=== PATIENT | male | born 1990 | race American Indian/Alaskan Native ===

== ENCOUNTER 2021-07-18 15:36 | Emergency (ER) | payer SELFPAY ==
[2021-07-18 15:42] VITALS: BP 138/84
== END 2021-07-18 20:45 | disposition left against medical advice (07) ==
LOC: ED 15:36
DX: R51.9 Headache, unspecified (principal); Z53.21 Procedure and treatment not carried out due to patient leaving prior to being seen by health care provider

== ENCOUNTER 2021-09-14 16:22 | Emergency (ER) | payer BC ==
[2021-09-14 17:02] VITALS: BP 146/105
--- NOTE | 2021-09-14 17:06 | Emergency Department Report ---
ED General Adult HPI - General Chief complaint: High BP Stated complaint: REACTION TO MEDICATION Time Seen by Provider: 09/14/21 16:38 Source: patient Mode of arrival: Ambulatory Limitations: No Limitations - History of Present Illness Initial comments: Patient is a 31-year-old male presents emergency room with complaints of elevated blood pressure. Patient states that the last 4 times he has been evaluated his blood pressure has been elevated. He states that he went to his primary care doctor yesterday and reports that his blood pressure was 140/114. Patient states he has been suffering from anxiety and panic attacks. He states that his doctor started him on hydroxyzine yesterday but he states it just makes him feel more hyped up. [place] to be on something for anxiety which she reports helped but he cannot member what he was taking. He denies any SI, HI, hallucina tions. He states he has been having headaches. He denies any vision changes, chest pain, nausea, vomiting, diarrhea, cough, shortness of breath, weakness, speech disturbance, gait disturbance. Allergy to Flexeril. He states that high blood pressure runs in his family. He states [place]. Severity scale (0 -10): 5 - Related Data Previous Rx's Medication Instructions Recorded Last Taken Type Ibuprofen [Motrin] 800 mg PO Q8H PRN #60 tablet 02/16/15 Unknown Rx traMADoL [Ultram] 50 mg PO Q6HR PRN #20 tablet 02/16/15 Unknown Rx amLODIPine 5 mg PO DAILY #30 tab 09/14/21 Unknown Rx Allergies Allergy/AdvReac Type Severity Reaction Status Date / Time cyclobenzaprine HCl AdvReac Unknown Verified 09/14/21 17:02 [From Flexeril] ED Review of Systems ROS: Stated complaint: REACTION TO MEDICATION Other details as noted in HPI Comment: All other systems reviewed and negative ED Past Medical Hx - Past Medical History Previous Medical History?: Yes Hx Hypertension: Yes (no meds) Additional medical history: cervical radiculopathy - Surgical History Past Surgical History?: Yes Additional Surgical History: Left thumb - Social History Smoking Status: Never Smoker Substance Use Type: None - Medications Home Medications: Home Medications Medication Instructions Recorded Confirmed Last Taken Type Ibuprofen [Motrin] 800 mg PO Q8H PRN #60 tablet 02/16/15 09/14/21 Unknown Rx traMADoL [Ultram] 50 mg PO Q6HR PRN #20 tablet 02/16/15 09/14/21 Unknown Rx amLODIPine 5 mg PO DAILY #30 tab 09/14/21 Unknown Rx ED Physical Exam - General Limitations: No Limitations General appearance: alert, in no apparent distress - Head Head exam: Present: atraumatic, normocephalic - Eye Eye exam: Present: normal appearance, PERRL, EOMI - ENT ENT exam: Present: mucous membranes moist - Respiratory Respiratory exam: Present: normal lung sounds bilaterally. Absent: respiratory distress, wheezes, rales, rhonchi, stridor, chest wall tenderness, accessory muscle use, decreased breath sounds, prolonged expiratory - Cardiovascular Cardiovascular Exam: Present: regular rate, normal rhythm, normal heart sounds. Absent: systolic murmur, diastolic murmur, rubs, gallop - Neurological Exam Neurological exam: Present: alert, oriented X3, CN II-XII intact, normal gait. Absent: motor sensory deficit - Psychiatric Psychiatric exam: Present: normal affect, normal mood - Skin Skin exam: Present: warm, dry, intact ED Course Vital Signs 09/14/21 09/14/21 09/14/21 16:34 17:00 17:01 Temperature 98.9 F 98.5 F Pulse Rate 109 H 85 Respiratory 20 18 Rate Blood Pressure 150/102 146/105 [Right] O2 Sat by Pulse 99 99 99 Oximetry ED Medical Decision Making - Lab Data Result diagrams: 09/14/21 17:25 09/14/21 17:25 Lab Results 09/14/21 09/14/21 09/14/21 Range/Units 17:25 17:25 Unknown WBC 8.2 (4.5-11.0) K/mm3 RBC 5.03 (3.65-5.03) M/mm3 Hgb 16.0 H (11.8-15.2) gm/dl Hct 47.7 H (35.5-45.6) % MCV 95 H (84-94) fl MCH 32 (28-32) pg MCHC 33 (32-34) % RDW 14.5 (13.2-15.2) % Plt Count 238 (140-440) K/mm3 Lymph % (Auto) 24.7 (13.4-35.0) % [place] % (Auto) 6.2 (0.0-7.3) % Eos % (Auto) 3.2 (0.0-4.3) % Baso % (Auto) 0.5 (0.0-1.8) % Lymph # (Auto) 2.0 (1.2-5.4) K/mm3 [place] # (Auto) 0.5 (0.0-0.8) K/mm3 Eos # (Auto) 0.3 (0.0-0.4) K/mm3 Baso # (Auto) 0.0 (0.0-0.1) K/mm3 Seg Neutrophils % 65.4 (40.0-70.0) % Seg Neutrophils # 5.3 (1.8-7.7) K/mm3 Sodium 133 L (137-145) mmol/L Potassium 3.8 (3.6-5.0) mmol/L Chloride 100.6 (98-107) mmol/L Carbon Dioxide 24 (22-30) mmol/L Anion Gap 12 mmol/L BUN 12 (9-20) mg/dL Creatinine 1.1 (0.8-1.3) mg/dL Estimated GFR > 60 ml/min BUN/Creatinine Ratio 11 % Glucose 95 (75-100) mg/dL Calcium 9.8 (8.4-10.2) mg/dL Urine Color Yellow (Yellow) Urine Turbidity Clear (Clear) Urine pH 7.0 (5.0-7.0) Ur Specific [place] 1.014 (1.003-1.030) Urine Protein <15 mg/dl (Negative) mg/dL Urine Glucose (UA) Neg (Negative) mg/dL Urine Ketones Neg (Negative) mg/dL Urine Blood Neg (Negative) Urine Nitrite Neg (Negative) Urine Bilirubin Neg (Negative) Urine Urobilinogen < 2.0 (<2.0) mg/dL Ur Leukocyte Esterase Neg (Negative) Urine WBC (Auto) 1.0 (0.0-6.0) /HPF Urine RBC (Auto) 2.0 (0.0-6.0) /HPF Hyaline Casts 1 /LPF Urine Mucus Few /HPF Vital Signs 09/14/21 09/14/21 09/14/21 16:34 17:00 17:01 Temperature 98.9 F 98.5 F Pulse Rate 109 H 85 Respiratory 20 18 Rate Blood Pressure 150/102 146/105 [Right] O2 Sat by Pulse 99 99 99 Oximetry - Medical Decision Making Patient is a 31-year-old male presents emergency room with complaints of elevate d blood pressure. Patient states that the last 4 times he has been evaluated his blood pressure has been elevated. He states that he went to his primary care doctor yesterday and reports that his blood pressure was 140/114. Patient states he has been suffering from anxiety and panic attacks. He states that his doctor started him on hydroxyzine yesterday but he states it just makes him feel more hyped up. [place] and used to be on something for anxiety which she reports helped but he cannot member what he was taking. He denies any SI, HI, hallucinations. He states he has been having headaches. He denies any vision changes, chest pain, nausea, vomiting, diarrhea, cough, shortness of breath, weakness, speech disturbance, gait disturbance. Allergy to Flexeril. He states that high blood pressure runs in his family. He states he [place] diabetes. vitals with elevated blood pressure and heart rate. HR improved upon repeat. BP is elevated. Patient has no focal neuro deficits on exam. Labs are stable. UA is within normal limits. No renal dysfunction, no proteinuria. Patient will be started on low-dose amlodipine. Advised patient Please take medication as prescribed. Increase your water intake. Eat a low-sodium diet. Incorporate 3060 minutes of daily exercise. Please keep a blood pressure log and take this to the primary care doctor. Follow-up with your primary care doctor. Please also discuss with your primary care doctor about changing your anxiety medication. Please practice healthy coping mechanisms such as breathing exercises, meditation, watching videos, walking, exercise, etc. Return to emergency room for any new or worsening symptoms. Critical care attestation.: If time is entered above; I have spent that time in minutes in the direct care of this critically ill patient, excluding procedure time. ED Disposition Clinical Impression: Anxiety HTN (hypertension) Qualifiers: Hypertension type: unspecified Qualified Code(s): I10 - Essential (primary) hypertension Disposition: 01 HOME / SELF CARE / HOMELESS Is pt being admited?: No Does the pt Need Aspirin: No Condition: Stable Instructions: Managing Anxiety, Adult, Managing Your Hypertension, Hypertension (ED) Additional Instructions: Please take medication as prescribed. Increase your water intake. Eat a low- sodium diet. Incorporate 3060 minutes of daily exercise. Please keep a blood pressure log and take this to the primary care doctor. Follow-up with your [facility] care doctor. Please also discuss with your primary care doctor about changing your anxiety medication. Please practice healthy coping mechanisms such as breathing exercises, meditation, watching videos, walking, exercise, etc. Return to emergency room for any new or worsening symptoms. Prescriptions: amLODIPine 5 mg PO DAILY #30 tab Referrals: your, primary care doctor [Other] - 3-5 Days Time of Disposition: 17:58 Print Language: PORTUGUESE
[2021-09-14 17:16] LABS: Bilirubin,Urine NEG (Negative); Blood,Urine NEG (Negative); Color,Urine Yellow (Yellow); Hyaline Casts,Urine 1 /LPF; Mucus,Urine FEW /HPF; Protein,Urine <15 mg/dL mg/dL (Negative); Urobilinogen,Urine < 2.0 mg/dL (<2.0)
[2021-09-14 17:38] LABS: Basophils % (Auto) 0.5 % (0.0-1.8); Eosinophils # (Auto) 0.3 K/mm3 (0.0-0.4); Eosinophils % (Auto) 3.2 % (0.0-4.3); Hematocrit 47.7 % (35.5-45.6); Lymphocytes % (Auto) 24.7 % (13.4-35.0); Mean Corpuscular HGB Conc 33 % (32-34); Mean Corpuscular Volume 95 fl (84-94); Monocytes # (Auto) 0.5 K/mm3 (0.0-0.8); Monocytes % (Auto) 6.2 % (0.0-7.3); Platelet Count 238 K/mm3 (140-440); Red Blood Count 5.03 M/mm3 (3.65-5.03); Red Cell Distribution Width 14.5 % (13.2-15.2)
[2021-09-14 17:55] LABS: BUN/Creatinine Ratio 11; Blood Urea Nitrogen 12 mg/dL (9-20); Calcium 9.8 mg/dL (8.4-10.2); Hemolysis Index 9
== END 2021-09-14 18:10 | disposition home or self-care (01) ==
LOC: ED 16:22
DX: F41.9 Anxiety disorder, unspecified (principal); I10 Essential (primary) hypertension; Z91.09 Other allergy status, other than to drugs and biological substances; Z79.899 Other long term (current) drug therapy; Z98.890 Other specified postprocedural states
CPT/HCPCS: 36415; 80048; 81001; 85025; 99283

== ENCOUNTER 2021-12-14 07:28 | Emergency (ER) | payer BC ==
[2021-12-14 09:54] VITALS: BP 145/91
[2021-12-14] MEDS ORDERED: dexAMETHasone 4 MG/ML VIAL IM ONE (10:11)
--- NOTE | 2021-12-14 10:11 | Emergency Department Report ---
ED Back Pain/Injury HPI - General Chief Complaint: Back Pain/Injury Stated Complaint: BACK PAIN Time Seen by Provider: 12/14/21 10:10 Source: patient Limitations: No Limitations - History of Present Illness Initial Comments: Patient is a 31-year-old male that comes to the ER with low back pain. He states its worse on the right side. Is worse with movement. He denies any urin sahra symptoms. No discharge, dysuria, fever or chills. He reports that he lifts a lot of items at work. And that the pain is worse when he is lifting at work. He is ambulatory to the ER with no signs and symptoms of cauda equina. He has no fever or chills. The pain is not waking him at night. The pain is actually relieved with rest. MD Complaint: back pain -: Gradual, days(s) Similar Symptoms Previously: Yes Radiation: none Quality: dull Consistency: intermittent Improves With: immobilization Worsens With: movement Associated Symptoms: denies other symptoms - Related Data Previous Rx's Medication Instructions Recorded Last Taken Type Cyclobenzaprine [Flexeril] 10 mg PO TID PRN #10 tablet 12/14/21 Unknown Rx Allergies Allergy/AdvReac Type Severity Reaction Status Date / Time iodine Allergy Swelling Verified 12/14/21 10:40 shellfish derived Allergy Swelling Verified 12/14/21 10:40 cyclobenzaprine HCl AdvReac Unknown Verified 12/14/21 10:40 [From Flexeril] ED Review of Systems ROS: Stated complaint: BACK PAIN Other details as noted in HPI Comment: All other systems reviewed and negative ED Past Medical Hx - Past Medical History Previous Medical History?: Yes Hx Hypertension: Yes (no meds) Additional medical history: cervical radiculopathy - Surgical History Past Surgical History?: No Additional Surgical History: Left thumb - Family History Family history: no significant - Social History Smoking Status: Never Smoker Substance Use Type: None - Medications Home Medications: Home Medications Medication Instructions Recorded Confirmed Last Taken Type Cyclobenzaprine [Flexeril] 10 mg PO TID PRN #10 tablet 12/14/21 Unknown Rx ED Physical Exam - General Limitations: No Limitations General appearance: alert, in no apparent distress - Head Head exam: Present: atraumatic, normocephalic - Eye Eye exam: Present: normal appearance - ENT ENT exam: Present: mucous membranes moist - Neck Neck exam: Present: normal inspection - Respiratory Respiratory exam: Present: normal lung sounds bilaterally. Absent: respiratory distress - Cardiovascular Cardiovascular Exam: Present: regular rate, normal rhythm. Absent: systolic murmur, diastolic murmur, rubs, gallop - GI/Abdominal GI/Abdominal exam: Present: soft, normal bowel sounds - Rectal Rectal exam: Present: deferred - Extremities Exam Extremities exam: Present: normal inspection - Back Exam Back exam: Present: normal inspection - Neurological Exam Neurological exam: Present: alert, oriented X3 - Psychiatric Psychiatric exam: Present: normal affect, normal mood - Skin Skin exam: Present: warm, dry, intact, normal color. Absent: rash ED Course Vital Signs 12/14/21 09:52 Temperature 98.7 F Pulse Rate 60 Respiratory 18 Rate Blood Pressure 145/91 [Right] O2 Sat by Pulse 97 Oximetry ED Medical Decision Making - Medical Decision Making Patient's pain is reproducible on exam. It is worse with movement. It is an aching pain. He reports doing a lot of lifting at work. Negative straight leg raise. Patient denies any trauma, fall, car wreck or other mechanism that would warrant imaging. Patient has no tenderness over the spine. Patient has no dysuria, discharge or CVA tenderness. Medicated with Decadron IM in the ER. This did relieve the pain. Vital Signs 12/14/21 09:52 Temperature 98.7 F Pulse Rate 60 Respiratory 18 Rate Blood Pressure 145/91 [Right] O2 Sat by Pulse 97 Oximetry Patient being discharged home with discharge plan of care including diet, activity, medications and follow-up. He verbalizes understanding of plan of care. Patient remains ambulatory and neurologically intact on discharge - Differential Diagnosis Musculoskeletal pain versus kidney stone Critical care attestation.: If time is entered above; I have spent that time in minutes in the direct care of this critically ill patient, excluding procedure time. ED Disposition Clinical Impression: Musculoskeletal strain Disposition: 01 HOME / SELF CARE / HOMELESS Is pt being admited?: No Does the pt Need Aspirin: No Condition: Stable Instructions: Lumbosacral Strain Additional Instructions: Warm compresses and Epson salts In bathtub will help with pain [id number] Motrin and Tylenol can be used with your medication given today. Take medication today only when you are at home and not driving. Follow-up with PCP next week to ensure that you are getting better. Referrals been given below. Use good body mechanics when lifting Prescriptions: Cyclobenzaprine [Flexeril] 10 mg PO TID PRN #10 tablet PRN Reason: Muscle Spasm Referrals: PRIMARY CAREMD [Primary Care Provider] - 3-5 Days SPRING KABA MD [Staff Physician] - 3-5 Days Forms: Work/School Release Form(ED) Time of Disposition: 10:11
== END 2021-12-14 12:22 | disposition home or self-care (01) ==
LOC: ED 07:28
DX: S39.012A Strain of muscle, fascia and tendon of lower back, initial encounter (principal); I10 Essential (primary) hypertension; Z88.6 Allergy status to analgesic agent; Z91.013 Allergy to seafood; Z79.899 Other long term (current) drug therapy; X50.0XXA Overexertion from strenuous movement or load, initial encounter; Y93.89 Activity, other specified; Y92.89 Other specified places as the place of occurrence of the external cause; Y99.8 Other external cause status
CPT/HCPCS: 96372; 99282; J1100